=== PATIENT | female | born 1980 | race Caucasian/White ===

== ENCOUNTER → 2023-03-20 | Outpatient (REF) | payer MEDICARE, MEDICAID | LOC: M SFHCWAGY 17:31 | PROVIDERS: ATTEND Obstetrics & Gynecology | DX: Z12.4 Encounter for screening for malignant neoplasm of cervix (principal); R87.610 Atypical squamous cells of undetermined significance on cytologic smear of cervix (ASC-US) | CPT/HCPCS: 87624; G0123 ==

== ENCOUNTER → 2023-03-28 | Outpatient (REF) | payer MEDICARE, MEDICAID ==
[2023-03-28 18:40] LABS: BASO % 0.3 % (0.0-1.0); EOS # 0.1 10^3/uL (0.0-0.5); EOS % 0.5 % (0.0-3.0); HEMATOCRIT 41.7 % (36.0-47.0); HEMOGLOBIN 13.1 g/dl (12.0-15.5); LYMPH % 13.4 % (24.0-44.0); MEAN CORPUSCULAR HEMOGLOBIN 29.2 pg (27.0-33.0); MEAN CORPUSCULAR HGB CONC 31.4 g/dl (32.0-36.5); MEAN CORPUSCULAR VOLUME 92.9 fl (80.0-96.0); MONO # 0.4 10^3/uL (0.0-0.8); MONO % 2.8 % (2.0-8.0); NEUTROPHILS % 81.2 % (36.0-66.0); PLATELET COUNT, AUTOMATED 313 10^3/uL (150-450); RED BLOOD COUNT 4.49 10^6/uL (4.00-5.40); WHITE BLOOD COUNT 14.8 10^3/uL (4.0-10.0)
== END ==
LOC: M LAB REF 17:17
PROVIDERS: ATTEND Internal Medicine Pulmonary Disease
DX: J45.50 Severe persistent asthma, uncomplicated (principal)

== ENCOUNTER → 2023-04-13 | Outpatient (CLI) | payer MEDICARE, MEDICAID | LOC: M WHC 11:06 | PROVIDERS: ATTEND Obstetrics & Gynecology | DX: N93.9 Abnormal uterine and vaginal bleeding, unspecified (principal); D25.9 Leiomyoma of uterus, unspecified; N83.201 Unspecified ovarian cyst, right side ==

== ENCOUNTER → 2023-04-25 | Outpatient (REF) | payer MEDICARE, MEDICAID | LOC: M SFHCWAGY 17:57 | PROVIDERS: ATTEND Obstetrics & Gynecology | DX: N93.9 Abnormal uterine and vaginal bleeding, unspecified (principal) ==

== ENCOUNTER 2023-06-10 19:22 | Emergency (ER) | payer MEDICARE, MEDICAID ==
[~2023-06-10] VITALS: Ht 160 cm; Wt 139.8 kg
[2023-06-10 20:50] LABS: BASO # 0.1 10^3/uL (0.0-0.2); BASO % 0.4 % (0.0-1.0); EOS # 0.4 10^3/uL (0.0-0.5); EOS % 1.9 % (0.0-3.0); HEMATOCRIT 48.1 % (36.0-47.0); HEMOGLOBIN 15.8 g/dl (12.0-15.5); LYMPH # 4.4 10^3/uL (1.5-5.0); LYMPH % 19.3 % (24.0-44.0); MEAN CORPUSCULAR HEMOGLOBIN 29.2 pg (27.0-33.0); MEAN CORPUSCULAR HGB CONC 32.8 g/dl (32.0-36.5); MEAN CORPUSCULAR VOLUME 88.7 fl (80.0-96.0); MONO # 1.4 10^3/uL (0.0-0.8); MONO % 6.1 % (2.0-8.0); NEUTROPHILS # 16.2 10^3/uL (1.5-8.5); NEUTROPHILS % 71.7 % (36.0-66.0); PLATELET COUNT, AUTOMATED 350 10^3/uL (150-450); RED BLOOD COUNT 5.42 10^6/uL (4.00-5.40); WHITE BLOOD COUNT 22.7 10^3/uL (4.0-10.0)
[2023-06-10 21:05] LABS: LIPASE 56 U/L (12-53)
[2023-06-10 21:12] LABS: ALKALINE PHOSPHATASE 89 U/L (46-116); ALT/SGPT 30 U/L (7.0-40); AST/SGOT 18 U/L (<34); BILIRUBIN,DIRECT 0.2 MG/DL (<0.4); BILIRUBIN,TOTAL 0.6 MG/DL (0.3-1.2); BLOOD UREA NITROGEN 15 MG/DL (9-23); CALCIUM LEVEL 10.8 MG/DL (8.5-10.1); CARBON DIOXIDE LEVEL 29 MMOL/L (20-31); CHLORIDE LEVEL 104 MMOL/L (98-107); CREATININE FOR GFR 0.58 MG/DL (0.55-1.30); GLOMERULAR FILTRATION RATE > 60.0 (>58); GLUCOSE, FASTING 155 MG/DL (60-100); POTASSIUM SERUM 3.8 MMOL/L (3.5-5.1); SODIUM LEVEL 142 MMOL/L (136-145); TOTAL PROTEIN 7.4 G/DL (5.7-8.2)
[2023-06-10 21:15] LABS: HCG, SERUM QUALITATIVE NEGATIVE (NEGATIVE)
[2023-06-10] MEDS: METOCLOPRAMIDE INJ 10MG/2ML VIAL IV ONE (21:35)
[2023-06-10] MEDS: PANTOPRAZOLE 40MG VIAL IV ONE (21:36)
[2023-06-10] MEDS ORDERED: ISOVUE-370 76% 100ML VIAL As Ordered ONE (21:57)
[2023-06-10 22:31] VITALS: BP 156/68; TEMP 98.7; O2SAT 98
[2023-06-10] MEDS ORDERED: REGL10TA6 PO (23:40)
== END 2023-06-10 23:54 | disposition left against medical advice (07) ==
LOC: M ED 19:22
DX: R10.9 Unspecified abdominal pain (principal); R11.2 Nausea with vomiting, unspecified; K21.9 Gastro-esophageal reflux disease without esophagitis; F43.10 Post-traumatic stress disorder, unspecified; F41.9 Anxiety disorder, unspecified; F32.9 Major depressive disorder, single episode, unspecified; F17.200 Nicotine dependence, unspecified, uncomplicated; Z88.5 Allergy status to narcotic agent; Z79.899 Other long term (current) drug therapy; Z79.1 Long term (current) use of non-steroidal anti-inflammatories (NSAID); Z79.2 Long term (current) use of antibiotics; Z53.9 Procedure and treatment not carried out, unspecified reason
CPT/HCPCS: 74177; 80048; 80076; 81001; 83605; 83690; 84703; 85025; 87040; 99284; C9113; J2765; Q9967

== ENCOUNTER 2023-06-12 13:34 | Inpatient (IN) | payer MEDICARE, MEDICAID ==
[~2023-06-12] VITALS: Ht 157.5 cm; Wt 140.2 kg
[~2023-06-12 13:34] MED LIST: REGL10TA6 PO
[2023-06-12 16:30] LABS: HEMATOCRIT 47.7 % (36.0-47.0); HEMOGLOBIN 16.2 g/dl (12.0-15.5); MEAN CORPUSCULAR HEMOGLOBIN 29.8 pg (27.0-33.0); MEAN CORPUSCULAR VOLUME 87.7 fl (80.0-96.0); PLATELET COUNT, AUTOMATED 349 10^3/uL (150-450); RED BLOOD COUNT 5.44 10^6/uL (4.00-5.40); WHITE BLOOD COUNT 20.8 10^3/uL (4.0-10.0)
[2023-06-12 16:52] LABS: LIPASE 45 U/L (12-53)
[2023-06-12 17:00] LABS: ALBUMIN 4.2 G/DL (3.2-5.2); ALKALINE PHOSPHATASE 96 U/L (46-116); ALT/SGPT 29 U/L (7.0-40); AST/SGOT 24 U/L (<34); BILIRUBIN,DIRECT 0.3 MG/DL (<0.4); BILIRUBIN,TOTAL 1.1 MG/DL (0.3-1.2); BLOOD UREA NITROGEN 30 MG/DL (9-23); CALCIUM LEVEL 10.4 MG/DL (8.5-10.1); CARBON DIOXIDE LEVEL 29 MMOL/L (20-31); CHLORIDE LEVEL 94 MMOL/L (98-107); CREATININE FOR GFR 0.93 MG/DL (0.55-1.30); GLOMERULAR FILTRATION RATE > 60.0 (>58); GLUCOSE, FASTING 180 MG/DL (60-100); POTASSIUM SERUM 3.4 MMOL/L (3.5-5.1); SODIUM LEVEL 133 MMOL/L (136-145); TOTAL PROTEIN 7.4 G/DL (5.7-8.2)
[2023-06-12 17:24] LABS: ATYPICAL LYMPH 7 % (0-5); EOSINOPHILS 3 % (0-3); LYMPHOCYTES 21 % (16-44); MONOCYTES 4 % (0-5); NEUTROPHILS 65 % (28-66); PLATELET ESTIMATE NORMAL (NORMAL)
[2023-06-12] MEDS: NS 1,000 ML IV ONE ×2 (19:00→23:21)
[2023-06-12] MEDS: KETOROLAC 30 MG/ML 1ML VIAL IV ONE (19:01)
[2023-06-12] MEDS: LORazepam 2 MG/ML 1ML VIAL IV STA (19:25)
[2023-06-12] MEDS ORDERED: METO10TA2 PO (20:15)
[2023-06-12] MEDS ORDERED: AMOX875T2 PO (20:15)
[2023-06-12] MEDS ORDERED: CYCL5TAB PO (20:15)
[2023-06-12] MEDS ORDERED: ARIP1TAB6 PO (20:15)
[2023-06-12] MEDS ORDERED: BUSP15TA47 PO (20:15)
[2023-06-12] MEDS ORDERED: FLUT1BLS8 INH (20:15)
[2023-06-12] MEDS ORDERED: TRUL10IN SC (20:15)
[2023-06-12] MEDS ORDERED: IPRA3SP INH (20:15)
[2023-06-12] MEDS ORDERED: LEVOTAB10 PO (20:15)
[2023-06-12] MEDS ORDERED: LORA-1041 PO (20:15)
[2023-06-12] MEDS ORDERED: AZEL0.05 OU (20:15)
[2023-06-12] MEDS ORDERED: MOME50SP2 NARES (20:15)
[2023-06-12] MEDS ORDERED: FAMO1TAB11 PO (20:15)
[2023-06-12] MEDS ORDERED: CETI-24 PO (20:15)
[2023-06-12] MEDS ORDERED: MONT10TA97 PO (20:15)
[2023-06-12] MEDS ORDERED: VERA40TA PO (20:15)
[2023-06-12] MEDS ORDERED: PANT40TA29 PO (20:15)
[2023-06-12] MEDS ORDERED: AZEL1SPR3 NARES (20:15)
[2023-06-12] MEDS ORDERED: VASC1CAP2 PO (20:15)
[2023-06-12] MEDS ORDERED: ARNU1INH3 INH (20:15)
[2023-06-12] MEDS ORDERED: HOME MED LIST COMPLETE! XX SCH (20:20)
[2023-06-12] MEDS ORDERED: ONDANSETRON 4MG 2ML VIAL IV PRN (20:55)
[2023-06-12] MEDS: LIDOCAINE 2% JELLY 6ML SYRINGE TOP ONE (21:14)
[2023-06-12] MEDS ORDERED: VANCOMYCIN HCL 1,750 MG in IV FLUID PLACE HOLDER 1 EA IV ONE (22:35)
[2023-06-12] MEDS ORDERED: GLUCAGON INJ 1MG VIAL SC PRN (22:35)
[2023-06-12] MEDS ORDERED: VANCOMYCIN HCL 1,750 MG in IV FLUID PLACE HOLDER 1 EA IV SCH (22:35)
[2023-06-12] MEDS ORDERED: DEXTROSE 50% 50ML SYRINGE IV PRN (22:35)
[2023-06-12] MEDS ORDERED: GLUCOSE 4GM CHEW TABLET PO PRN (22:35)
[2023-06-12] MEDS: NS 1,000 ML IV SCH (23:14)
[2023-06-12] MEDS: MORPHINE 2 MG/ML 1ML VIAL IV ONE (23:16)
[2023-06-12] MEDS: NICOTINE 21MG/24HR 1 EA TRANSDERMAL TD SCH (23:20)
[2023-06-12] MEDS: KCL 10MEQ/100ML SWI (KRUN) 10 MEQ in IV 1 EA IV ONE (23:23)
[2023-06-12] MEDS: GASTROGRAFIN SOLUTION 30ML PO SCH (23:25)
[2023-06-12] MEDS: BISACODYL 10MG SUPP PR ONE (23:27)
[2023-06-12 23:44] LABS: PROTHROMBIN TIME 12.9 SECONDS (12.5-14.5)
[2023-06-13] MEDS ORDERED: VANCOMYCIN HCL 1,000 MG, VIAL MATE ADAPTER 1 EACH in D5W 250 ML IV SCH
[2023-06-13] MEDS ORDERED: ISOVUE-370 76% 100ML VIAL As Ordered ONE (00:31)
[2023-06-13] MEDS: VANCOMYCIN HCL 1,000 MG, VIAL MATE ADAPTER 1 EACH in D5W 250 ML IV ONE ×2 (01:00→05:08)
[2023-06-13] MEDS: PIPERACILLIN/TAZOBACTAM SOD 4.5 GM in D5W MINI-BAG PLUS 50 ML IV SCH (01:06)
[2023-06-13] MEDS: INSULIN LISPRO (NovoLOG) PER UNIT SC SCH (01:06)
[2023-06-13 01:47] VITALS: BP 150/96; TEMP 98.4; O2SAT 91
[2023-06-13] MEDS: ACETAMINOPHEN *IV* 1,000 MG in IV 1 EA IV ONE (03:04)
[2023-06-13] MEDS ORDERED: FLEET ENEMA PR PRN (03:05)
[2023-06-13] MEDS: VANCOMYCIN HCL 1,000 MG, VIAL MATE ADAPTER 1 EACH in D5W 250 ML IV SCH (03:26)
[2023-06-13 06:27] LABS: MEAN CORPUSCULAR HEMOGLOBIN 29.4 pg (27.0-33.0); MEAN CORPUSCULAR HGB CONC 32.8 g/dl (32.0-36.5); MEAN CORPUSCULAR VOLUME 89.4 fl (80.0-96.0); PLATELET COUNT, AUTOMATED 257 10^3/uL (150-450); RED BLOOD COUNT 4.53 10^6/uL (4.00-5.40); WHITE BLOOD COUNT 14.2 10^3/uL (4.0-10.0)
[2023-06-13 06:32] LABS: HEMATOCRIT 40.5 % (36.0-47.0); HEMOGLOBIN 13.3 g/dl (12.0-15.5)
[2023-06-13 07:03] LABS: ALBUMIN 3.2 G/DL (3.2-5.2); ALKALINE PHOSPHATASE 74 U/L (46-116); ALT/SGPT 22 U/L (7.0-40); AST/SGOT 22 U/L (<34); BLOOD UREA NITROGEN 27 MG/DL (9-23); CALCIUM LEVEL 8.5 MG/DL (8.5-10.1); CARBON DIOXIDE LEVEL 33 MMOL/L (20-31); CHLORIDE LEVEL 96 MMOL/L (98-107); CREATININE FOR GFR 0.93 MG/DL (0.55-1.30); GLOMERULAR FILTRATION RATE > 60.0 (>58); GLUCOSE, FASTING 154 MG/DL (60-100); MAGNESIUM LEVEL 1.9 MG/DL (1.8-2.4); PROCALCITONIN <0.04 ng/ml; SODIUM LEVEL 136 MMOL/L (136-145)
[2023-06-13 10:05] VITALS: BP 142/95; TEMP 98; O2SAT 93
[2023-06-13] MEDS: ENOXAPARIN 40MG/0.4ML SYRINGE (J1650 PER 10MG) SC SCH (10:47)
[2023-06-13] MEDS ORDERED: CHLORASEPTIC SPRAY MT PRN (11:00)
[2023-06-13] MEDS ORDERED: KCL 10MEQ/100ML SWI (KRUN) 10 MEQ in IV 1 EA IV SCH (11:00)
[2023-06-13] MEDS: NICOTINE 21MG/24HR 1 EA TRANSDERMAL TD SCH (11:41)
[2023-06-13] MEDS: KETOROLAC 30 MG/ML 1ML VIAL IV ONE (11:41)
[2023-06-13] MEDS: SODIUM CHLORIDE 0.9% NASAL GEL 15GM (AYR) SCH (13:47)
[2023-06-13] MEDS: KCL 10MEQ/100ML SWI (KRUN) 10 MEQ in IV 1 EA IV SCH ×2 (13:48→22:17)
[2023-06-13] MEDS: KCL 40MEQ in NS 1000ML 1,000 ML IV SCH (13:48)
[2023-06-13 14:00] VITALS: BP 122/76; TEMP 98.8; O2SAT 94
[2023-06-13] MEDS ORDERED: LIDOCAINE 1% MDV 20ML VIAL As Ordered ONE (14:41)
[2023-06-13] MEDS ORDERED: SODIUM CHLORIDE 0.9% INJ 10 ML SYR IV PRN (16:40)
[2023-06-13 17:03] LABS: IONIZED CALCIUM 4.1 MG/DL (4.5-5.3)
[2023-06-13 17:29] LABS: BLOOD UREA NITROGEN 20 MG/DL (9-23); CALCIUM LEVEL 8.6 MG/DL (8.5-10.1); CARBON DIOXIDE LEVEL 32 MMOL/L (20-31); CHLORIDE LEVEL 98 MMOL/L (98-107); CREATININE FOR GFR 0.93 MG/DL (0.55-1.30); GLOMERULAR FILTRATION RATE > 60.0 (>58); GLUCOSE, FASTING 102 MG/DL (60-100); MAGNESIUM LEVEL 1.9 MG/DL (1.8-2.4); POTASSIUM SERUM 3.2 MMOL/L (3.5-5.1); SODIUM LEVEL 137 MMOL/L (136-145)
[2023-06-13] MEDS ORDERED: SODIUM CHLORIDE 0.9% INJ 10 ML SYR IV SCH (18:00)
[2023-06-13] MEDS: SODIUM CHLORIDE 0.9% INJ 10 ML SYR IV SCH (18:07)
[2023-06-13] MEDS: CALCIUM GLUCONATE 1,000 MG in D5W MINI-BAG PLUS 100 ML IV ONE (19:29)
[2023-06-13] MEDS: KETOROLAC 30 MG/ML 1ML VIAL IV SCH (19:29)
[2023-06-13] MEDS: MORPHINE 10 MG/ML 1ML VIAL IV ONE (19:30)
[2023-06-13] MEDS: NS 1,000 ML IV ONE (20:11)
[2023-06-13] MEDS: BISACODYL 10MG SUPP PR SCH (20:50)
[2023-06-13] MEDS: MAG SULF 1GM/100ML (MAG RUN) 1 GM in IV 1 EA IV ONE (20:50)
[2023-06-13 21:00] VITALS: BP 134/68; TEMP 97.9; O2SAT 93
[2023-06-13 23:47] VITALS: O2SAT 82
[2023-06-14 00:33] LABS: IONIZED CALCIUM 4.3 MG/DL (4.5-5.3)
[2023-06-14 01:05] LABS: MAGNESIUM LEVEL 2.3 MG/DL (1.8-2.4); POTASSIUM SERUM 3.6 MMOL/L (3.5-5.1)
[2023-06-14 06:06] LABS: IONIZED CALCIUM 4.3 MG/DL (4.5-5.3)
[2023-06-14 06:07] VITALS: BP 129/85; TEMP 97.9; O2SAT 93
[2023-06-14 06:13] LABS: BASO % 0.4 % (0.0-1.0); EOS # 0.4 10^3/uL (0.0-0.5); EOS % 3.4 % (0.0-3.0); HEMOGLOBIN 12.1 g/dl (12.0-15.5); LYMPH # 2.6 10^3/uL (1.5-5.0); LYMPH % 24.1 % (24.0-44.0); MEAN CORPUSCULAR HEMOGLOBIN 28.9 pg (27.0-33.0); MEAN CORPUSCULAR HGB CONC 31.8 g/dl (32.0-36.5); MEAN CORPUSCULAR VOLUME 90.7 fl (80.0-96.0); MONO # 0.9 10^3/uL (0.0-0.8); MONO % 8.3 % (2.0-8.0); NEUTROPHILS # 6.9 10^3/uL (1.5-8.5); NEUTROPHILS % 63.4 % (36.0-66.0); PLATELET COUNT, AUTOMATED 219 10^3/uL (150-450); RED BLOOD COUNT 4.19 10^6/uL (4.00-5.40); WHITE BLOOD COUNT 10.9 10^3/uL (4.0-10.0)
[2023-06-14] MEDS: SODIUM CHLORIDE 0.9% INJ 10 ML SYR IV PRN (06:13)
[2023-06-14 06:44] LABS: BLOOD UREA NITROGEN 17 MG/DL (9-23); CALCIUM LEVEL 8.1 MG/DL (8.5-10.1); CARBON DIOXIDE LEVEL 32 MMOL/L (20-31); CHLORIDE LEVEL 103 MMOL/L (98-107); CREATININE FOR GFR 0.83 MG/DL (0.55-1.30); GLOMERULAR FILTRATION RATE > 60.0 (>58); GLUCOSE, FASTING 125 MG/DL (60-100); MAGNESIUM LEVEL 2.3 MG/DL (1.8-2.4); POTASSIUM SERUM 3.4 MMOL/L (3.5-5.1); SODIUM LEVEL 140 MMOL/L (136-145)
[2023-06-14] MEDS ORDERED: MAG SULF 1GM/100ML (MAG RUN) 1 GM in IV 1 EA IV SCH (09:05)
[2023-06-14] MEDS: CALCIUM GLUCONATE 1,000 MG in D5W MINI-BAG PLUS 100 ML IV ONE (10:13)
[2023-06-14] MEDS: KCL 20MEQ IN D5/0.45NS 1000ML 1,000 ML IV SCH (10:19)
[2023-06-14] MEDS ORDERED: GASTROGRAFIN SOLUTION 30ML As Ordered ONE (10:42)
[2023-06-14] MEDS: SENNA 8.6 MG TAB (SENOKOT) PO SCH (13:51)
[2023-06-14] MEDS: DOCUSATE SODIUM 100MG CAPSULE PO SCH (13:52)
[2023-06-14 14:00] VITALS: BP 132/89; TEMP 98.8; O2SAT 96
[2023-06-14 14:00] LABS: IONIZED CALCIUM 4.6 MG/DL (4.5-5.3)
[2023-06-14 14:24] LABS: MAGNESIUM LEVEL 2.5 MG/DL (1.8-2.4); POTASSIUM SERUM 3.6 MMOL/L (3.5-5.1)
[2023-06-14] MEDS: KCL 10MEQ/100ML SWI (KRUN) 10 MEQ in IV 1 EA IV SCH (14:43)
[2023-06-14] MEDS: HYDROMORPHONE HCL 0.5 MG/ 0.5 ML SYRINGE IV ONE (18:57)
[2023-06-14 19:31] LABS: IONIZED CALCIUM 4.6 MG/DL (4.5-5.3)
[2023-06-14 19:48] LABS: POTASSIUM SERUM 3.6 MMOL/L (3.5-5.1)
[2023-06-14] MEDS: PANTOPRAZOLE 40MG TAB (PROTONIX) PO SCH (20:35)
[2023-06-14 21:05] VITALS: BP 163/89; TEMP 98.8; O2SAT 95
[2023-06-15 06:00] VITALS: BP 136/83; TEMP 97.7; O2SAT 94
[2023-06-15 08:02] LABS: BASO % 0.4 % (0.0-1.0); EOS # 0.4 10^3/uL (0.0-0.5); EOS % 3.7 % (0.0-3.0); HEMATOCRIT 37.8 % (36.0-47.0); HEMOGLOBIN 12.3 g/dl (12.0-15.5); MEAN CORPUSCULAR HEMOGLOBIN 29.2 pg (27.0-33.0); MEAN CORPUSCULAR HGB CONC 32.5 g/dl (32.0-36.5); MEAN CORPUSCULAR VOLUME 89.8 fl (80.0-96.0); MONO # 0.8 10^3/uL (0.0-0.8); MONO % 7.4 % (2.0-8.0); NEUTROPHILS # 6.8 10^3/uL (1.5-8.5); NEUTROPHILS % 61.2 % (36.0-66.0); PLATELET COUNT, AUTOMATED 233 10^3/uL (150-450); RED BLOOD COUNT 4.21 10^6/uL (4.00-5.40)
[2023-06-15 08:30] LABS: BLOOD UREA NITROGEN 12 MG/DL (9-23); CALCIUM LEVEL 8.4 MG/DL (8.5-10.1); CARBON DIOXIDE LEVEL 27 MMOL/L (20-31); CHLORIDE LEVEL 104 MMOL/L (98-107); CREATININE FOR GFR 0.78 MG/DL (0.55-1.30); GLOMERULAR FILTRATION RATE > 60.0 (>58); GLUCOSE, FASTING 174 MG/DL (60-100); POTASSIUM SERUM 3.5 MMOL/L (3.5-5.1); SODIUM LEVEL 139 MMOL/L (136-145)
[2023-06-15] MEDS: KCL 10MEQ/100ML SWI (KRUN) 10 MEQ in IV 1 EA IV ONE (08:50)
[2023-06-15 09:00] VITALS: O2SAT 93
[2023-06-15 09:33] LABS: MAGNESIUM LEVEL 2.1 MG/DL (1.8-2.4)
[2023-06-15] MEDS: MAG SULF 1GM/100ML (MAG RUN) 1 GM in IV 1 EA IV ONE (09:56)
[2023-06-15] MEDS ORDERED: NICO21PAT TD (13:06)
[2023-06-15] MEDS ORDERED: BISA10SU PR (13:06)
[2023-06-15] MEDS ORDERED: COLA100C5 PO (13:06)
[2023-06-15] MEDS ORDERED: AMOX875T2 PO (13:06)
[2023-06-15] MEDS ORDERED: SENO8.6T5 PO (13:06)
[2023-06-15] MEDS: CALCIUM GLUCONATE 1,000 MG in D5W MINI-BAG PLUS 100 ML IV ONE (13:24)
[2023-06-15 14:00] VITALS: BP 128/65; TEMP 98.1; O2SAT 99
[2023-06-19 16:17] LABS: Chitobioside Carbohydrat (ACCA 2 units (0-90); Laminaribioside Carbohyd (ALCA 2 units (0-60); Mannobioside Carbohydrat (AMCA 16 units (0-100); Saccharomyces cerevisiae IgG A 29 units (0-50)
== END 2023-06-15 15:01 | disposition home or self-care (01) | DRG 872 ==
LOC: M ED 13:34 → M ED INP 21:53 → ENRESERV 22:31 → M MSPAV 06-13 01:21
PROVIDERS: ADMIT Family Medicine; ATTEND General Practice
PROC: 05HY33Z Insertion of Infusion Device into Upper Vein, Percutaneous Approach (ICD-10-PCS; principal; 2023-06-13 16:00)
DX: A41.9 Sepsis, unspecified organism (principal); K56.600 Partial intestinal obstruction, unspecified as to cause; K56.7 Ileus, unspecified; E87.20 Acidosis, unspecified; I10 Essential (primary) hypertension; E11.43 Type 2 diabetes mellitus with diabetic autonomic (poly)neuropathy; R32 Unspecified urinary incontinence; M48.00 Spinal stenosis, site unspecified; M79.7 Fibromyalgia; F43.10 Post-traumatic stress disorder, unspecified; E87.8 Other disorders of electrolyte and fluid balance, not elsewhere classified; K44.9 Diaphragmatic hernia without obstruction or gangrene; E86.0 Dehydration; K59.00 Constipation, unspecified; K21.9 Gastro-esophageal reflux disease without esophagitis; J45.909 Unspecified asthma, uncomplicated; R65.20 Severe sepsis without septic shock; J44.9 Chronic obstructive pulmonary disease, unspecified; M54.2 Cervicalgia; E66.01 Morbid (severe) obesity due to excess calories; G43.909 Migraine, unspecified, not intractable, without status migrainosus; F17.210 Nicotine dependence, cigarettes, uncomplicated; E87.6 Hypokalemia; Z79.899 Other long term (current) drug therapy; Z79.84 Long term (current) use of oral hypoglycemic drugs; Z88.5 Allergy status to narcotic agent

== ENCOUNTER → 2023-09-01 | Outpatient (CLI) | payer MEDICARE, MEDICAID ==
[~2023-09-01] MED LIST changes: +AMOX875T2 PO; +ARIP1TAB6 PO; +ARNU1INH3 INH; +AZEL0.05 OU; +AZEL1SPR3 NARES; +BISA10SU PR; +BUSP15TA47 PO; +CETI-24 PO; +COLA100C5 PO; +CYCL5TAB PO; +FAMO1TAB11 PO; +FLUT1BLS8 INH; +IPRA3SP INH; +LEVOTAB10 PO; +LORA-1041 PO; +METO10TA2 PO; +MOME50SP2 NARES; +MONT10TA97 PO; +NICO21PAT TD; +PANT40TA29 PO; +SENO8.6T5 PO; +TRUL10IN SC; +VASC1CAP2 PO; +VERA40TA PO
== END ==
LOC: M RAD 10:15
PROVIDERS: ATTEND Pain Medicine Interventional Pain Medicine
DX: M54.12 Radiculopathy, cervical region (principal); M54.16 Radiculopathy, lumbar region

== ENCOUNTER → 2024-03-15 | Outpatient (CLI) | payer MEDICARE, MEDICAID ==
[~2024-03-15] MED LIST changes: +ALBU8.5H INH; -CYCL5TAB PO; +CYCL5TAB4 PO; +FURO20TA2 PO; +LACT10SO94 PO; +LOSA100T5 PO; +OREN1INJ SC; +ROSU40TA81 PO; +SULF500T2 PO; +TRAZ-252 PO
== END ==
LOC: M SLEEP 20:00
PROVIDERS: ATTEND Internal Medicine Pulmonary Disease
DX: G47.33 Obstructive sleep apnea (adult) (pediatric) (principal)

== ENCOUNTER 2024-07-08 17:25 | Emergency (ER) | payer MEDICAID, MEDICARE ==
[~2024-07-08] VITALS: Ht 157.5 cm; Wt 140.9 kg
[2024-07-08 20:29] VITALS: BP 159/96; TEMP 98.4; O2SAT 97
[2024-07-08] MEDS: KETOROLAC 30 MG/ML 1ML VIAL IM ONE (22:31)
[2024-07-08] MEDS ORDERED: MEDR4PAK PO (22:33)
== END 2024-07-08 22:48 | disposition home or self-care (01) ==
LOC: EDBD 17:25 → M ED 17:25
DX: S83.91XA Sprain of unspecified site of right knee, initial encounter (principal); X50.1XXA Overexertion from prolonged static or awkward postures, initial encounter; Y92.009 Unspecified place in unspecified non-institutional (private) residence as the place of occurrence of the external cause; Y93.89 Activity, other specified; Y99.9 Unspecified external cause status; Z79.4 Long term (current) use of insulin; Z79.899 Other long term (current) drug therapy; Z88.5 Allergy status to narcotic agent
CPT/HCPCS: 73564; 96372; 99284; J1885

== ENCOUNTER → 2025-02-06 | Outpatient (REF) | payer MEDICARE, MEDICAID ==
[~2025-02-06] MED LIST changes: +MEDR4PAK PO; +SENN-225 PO; -SENO8.6T5 PO
[2025-02-08 14:18] LABS: HPV APTIMA Not Detected (Not Detected)
== END ==
LOC: M SFHCWAGY 16:58
PROVIDERS: ATTEND Advanced Practice Midwife
DX: Z12.4 Encounter for screening for malignant neoplasm of cervix (principal)
CPT/HCPCS: 87624; G0123

== ENCOUNTER → 2025-02-06 | Outpatient (CLI) | payer MEDICARE, MEDICAID | LOC: M WHC 14:14 | PROVIDERS: ATTEND Advanced Practice Midwife | DX: Z12.31 Encounter for screening mammogram for malignant neoplasm of breast (principal); R92.323 Mammographic fibroglandular density, bilateral breasts ==